=== PATIENT | female | born 1980 | race Caucasian/White ===

== ENCOUNTER 2024-05-09 10:35 | Day surgery (SDC) | payer BC ==
[~2024-05-09] VITALS: Ht 177.8 cm; Wt 81.8 kg
[2024-05-09] MEDS ORDERED: CYCL-1 PO (11:20)
[2024-05-09 11:23] VITALS: BP 130/77; PULSE 92; RESP 16
[2024-05-09] MEDS ORDERED: PRAV20TA4 PO (11:31)
[2024-05-09] MEDS ORDERED: CARV-49 PO (11:31)
[2024-05-09] MEDS ORDERED: CHOL1CAP16 PO (11:31)
[2024-05-09] MEDS ORDERED: NALT50TA5 PO (11:31)
[2024-05-09] MEDS ORDERED: DOCO200C5 PO (11:31)
[2024-05-09] MEDS ORDERED: TIZA4TAB11 PO (11:31)
[2024-05-09] MEDS ORDERED: diphenhydrAMINE 50 mg/ml inj ONE (13:05)
[2024-05-09] MEDS ORDERED: fentaNYL/PF 50MCG/1 ML 2ML syringe ONE (13:05)
[2024-05-09] MEDS ORDERED: MIDAZolam 1 MG/ML 5ML VIAL ONE (13:05)
[2024-05-09 13:45] VITALS: BP 107/67; PULSE 92; RESP 10; O2SAT 94
[2024-05-09 13:55] VITALS: BP 104/75; PULSE 101; RESP 13; O2SAT 93
[2024-05-09 14:05] VITALS: BP 119/79; PULSE 90; RESP 17; O2SAT 95
[2024-05-09 14:15] VITALS: BP 118/71; PULSE 104; RESP 19; O2SAT 98
== END 2024-05-09 14:18 | disposition home or self-care (01) ==
LOC: GI LAB 10:35
PROVIDERS: ATTEND Internal Medicine Gastroenterology
DX: R19.5 Other fecal abnormalities (principal)
CPT/HCPCS: 45378; 82948; 99152; J1200; J2250; J3010; J7030; Z7512; 99153; A4620

== ENCOUNTER 2024-05-30 10:39 | Day surgery (SDC) | payer BC ==
[~2024-05-30] VITALS: Ht 177.8 cm; Wt 80.9 kg
[2024-05-30] VITALS (10 sets, daily range): BP systolic 83–108; BP diastolic 60–74; PULSE 92–106; RESP 12–16; O2SAT 97–99
[~2024-05-30 10:39] MED LIST: CARV-49 PO; CHOL1CAP16 PO; CYCL-1 PO; DOCO200C5 PO; NALT50TA5 PO; PRAV20TA4 PO; TIZA4TAB11 PO
[2024-05-30] MEDS ORDERED: fentaNYL/PF 50MCG/1 ML 2ML syringe ONE (14:54)
[2024-05-30] MEDS ORDERED: midazolam 1 mg/ML 2ml injection ONE (14:54)
[2024-05-30] MEDS ORDERED: dexamethasone sod phosphate 10mg/ml inj ONE (15:02)
[2024-05-30] MEDS ORDERED: glucagon, human recombinant 1mg kit ONE (15:07)
[2024-05-30] MEDS ORDERED: propofol inj 20 ML IV ONE ×2 (15:41)
[2024-05-30] MEDS ORDERED: morphine 2 MG/ML inj. syringe IV PRN (16:00)
[2024-05-30] MEDS ORDERED: ringers solution, lacted 1,000 ML IV SCH (16:00)
[2024-05-30] MEDS ORDERED: meperidine/PF 25mg/ml syringe IV PRN ×3 (16:00)
[2024-05-30] MEDS ORDERED: proCHLORperazine 10 MG/2 ml inj IV PRN (16:00)
[2024-05-30] MEDS ORDERED: ondansetron/PF 4mg/2ml inj IV PRN (16:00)
[2024-05-30] MEDS ORDERED: morphine 4 MG/ML inj SYRINge IV PRN (16:00)
== END 2024-05-30 15:44 | disposition home or self-care (01) ==
LOC: GI LAB 10:39
PROVIDERS: ATTEND Internal Medicine Gastroenterology
DX: R19.5 Other fecal abnormalities (principal)
CPT/HCPCS: 45380; J2175; J2250; J2270; J2405; J2704; J3010; Z7512; A4618; J1100; J1610; J7120